=== PATIENT | female | born 1990 | race Caucasian/White ===

== ENCOUNTER 2018-02-19 13:37 | Emergency (ER) | payer OTHER ==
[~2018-02-19] VITALS: Ht 149.9 cm; Wt 50.9 kg
[~2018-02-19 13:37] MED LIST: HYCODAN SYRUP480 ML PO; NAPROXEN500 MG PO; SKELAXIN800 MG PO
[2018-02-19] MEDS ORDERED: ULTRAM50 MG PO (16:39)
[2018-02-19 16:50] VITALS: BP 113/68
== END 2018-02-19 16:50 | disposition home or self-care (01) ==
LOC: EME 13:37
DX: S29.012A Strain of muscle and tendon of back wall of thorax, initial encounter (principal); X50.9XXA Other and unspecified overexertion or strenuous movements or postures, initial encounter; Y93.K1 Activity, walking an animal
CPT/HCPCS: 72070; 99281; 99283